=== PATIENT | female | born 1975 | race Caucasian/White ===

== ENCOUNTER → 2017-01-29 | Outpatient (CLI) | payer MEDICARE, OTHER ==
--- NOTE | 2017-01-30 09:12 | PN ---
PROGRESS NOTE Date of Service: DATE OF SERVICE: 01/29/2017. INDICATION: A 41-year-old lady brought into the sleep center for treatment of obstructive sleep apnea-hypopnea syndrome. Previously I saw the patient about 1 year ago. She continued to use her CPAP equipment successfully, but sometimes has a problem with full-face mask, may take mask off. [place] sleepiness scale today is only 2. I checked the CPAP unit, it showed usage at 29/39 for more than 4 hours, with average usage of 8.8 hours. This indicated great compliance. No snoring with the CPAP. MEDICATIONS: Venlafaxine, levothyroxine, Cogentin, omeprazole, Haldol, ProAir, Advair, Requip, vitamin D supplement. PHYSICAL EXAM: Patient in no distress. BP 116/72, HR 98, RR 16, height 5 feet 7 inches, weight 219 pounds, BMI 35.3, temperature 97.3, oxygen saturation on room air 97%. OROPHARYNX: Low position of soft palate. ABDOMEN: Obese. Neck Supple, no JVD. Thyroid is not palpable. LUNGS Clear to percussion and to auscultation. Good air exchange. No wheezing or rhonchi. HEART S1, S2 regular. No murmurs, gallops, or rubs. EXTREMITIES No clubbing or cyanosis. 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 Cranial nerves 2 to 7 intact. There is no fasciculation or atrophy. noted. No focal deficits observed. IMPRESSION: 1. Obstructive sleep apnea-hypopnea syndrome. The patient demonstrated practically 100% compliance with treatment, benefiting from treatment. Sometimes has discomfort with full-face mask. 2. Obesity. The patient significantly decreased her weight from 258 pounds during last visit to 219 pounds this visit. 3. History of bowel incontinence. 4. History of urinary incontinence. 5. History of psychosis. 6. History of goiter. 7. History of concussion. PLAN: 1. Continue treatment with CPAP every night for the whole night. 2. We will try different types of full-face mask. 3. Continue losing weight. 4. Sleep hygiene with adequate time in bed for at least 8 hours. 5. Follow up in 1 year or earlier if the patient has any problems. Thank you very much for allowing me to participate in the management of your patient. Sincerely, Abraham Dunaway MD, PhD, FAASM Diplomat of [employer] [employer] [employer] Operator of [facility] [place] MMSAGE / NIA: [id number] /
== END | disposition home or self-care (01) ==
LOC: SLEEP 13:40
PROVIDERS: ATTEND Internal Medicine
DX: G47.33 Obstructive sleep apnea (adult) (pediatric) (principal); E66.9 Obesity, unspecified; Z87.448 Personal history of other diseases of urinary system; Z86.59 Personal history of other mental and behavioral disorders; Z86.39 Personal history of other endocrine, nutritional and metabolic disease; Z87.820 Personal history of traumatic brain injury; Z87.19 Personal history of other diseases of the digestive system; Z79.899 Other long term (current) drug therapy; Z79.51 Long term (current) use of inhaled steroids

== ENCOUNTER → 2017-12-01 | Outpatient (CLI) | payer MEDICARE, OTHER ==
--- NOTE | 2017-12-01 16:15 | PN ---
PROGRESS NOTE This is a 42-year-old female patient coming to see me in followup regarding obstructive sleep apnea. The patient gotten a new CPAP unit which is an APAP with a minimum pressure of 5, maximum pressure of 12. The patient has symptomatic obstructive sleep apnea. She underwent a recent CPAP titration and she was given an APAP machine. Her sleep study showed significant sleep fragmentation frequent nocturnal arousals with an elevated arousal index, and she also demonstrated severe periodic limb movements causing sleep fragmentation. The patient has excessive number of periodic limb movements, a total of 656, with a PLMS index of 115. There were only 68 periodic limb movements that resulted in arousals, with an index of 12. At any rate, the patient is utilizing her CPAP therapy and she is coming in for followup. This is a compliancy check. I checked her CPAP machine. Her APAP machine is set at an EPR of 3. The patient has been utilizing her CPAP more than 4 hours 100% of the time. Average CPAP is around 6.3 hours per night. Leak factor is 18 L/minute. P90 pressure is at 11.6 and her AHI is down to 8. She was not able to obtain nose mask, and she is utilizing the AirFit P10 extra-small nose pillow. The patient was fitted to an AirFit N20 medium- sized mask; however, she has been told by insurance that she does not qualify for a new mask for now. She is also taking Requip 2 mg at bedtime and she is quite comfortable at this point. She is known to have multiple comorbidities, including history of schizophrenia, bipolar disorder, hypertension diabetes mellitus, irritable bowel syndrome, seizure disorder and hyperlipidemia. PHYSICAL EXAMINATION: HER CURRENT VITALS: BP is 108/76, pulse 90, respiration 16, temperature 97.1, saturation 98% on room air. Weight is 208. Height is 5 feet 6 inches. GENERAL APPEARANCE: Calm, comfortable. No acute distress. Head is atraumatic, normocephalic. NECK: Supple. There is no JVD. No goiter or neck masses. LUNGS: Clear to auscultation. Heart sounds are regular rate and rhythm. Normal S1, S2. No S3, S4. No murmurs. ABDOMEN: Soft, nontender. No organomegaly. EXTREMITIES: No edema. No cyanosis or clubbing. Neurologically alert and oriented x3. No focal neurological deficits. SKIN: Negative for any wounds or ulceration. IMPRESSION: 1. Symptomatic obstructive sleep apnea. The patient is currently on APAP, coming in for a compliancy check. 2. Sleep fragmentation secondary to obstructive sleep apnea, in part related to periodic limb movements. 3. Severe periodic limb movements with some sleep fragmentation, currently on Requip 2 mg at bedtime. 4. Obesity with a body mass index of 33.7. 5. Schizophrenia. 6. Bipolar disorder. 7. Hypertension. 8. Diabetes mellitus. 9. Irritable bowel syndrome. 10.Seizure disorder. 11.Restless legs syndrome. 12.Hyperlipidemia. PLAN: 1. Continue APAP with a minimum pressure of 5, maximum pressure of 20. 2. Provide this patient a sample of AirFit N20 medium-sized nose mask. 3. Continue Requip 2 mg at bedtime. 4. Watch for any symptoms of restless legs syndrome. The patient is benefitting from the treatment. She is waking up more refreshed and alert during the day. We will continue to follow and will consider intensifying her periodic limb movement treatment, especially if her sleep continues to be fragmented. Currently her [place] score is down to zero. MMFUNMIL / IJN: [id number] /
== END ==
LOC: SLEEP 14:30
PROVIDERS: ATTEND Internal Medicine Critical Care Medicine
DX: G47.33 Obstructive sleep apnea (adult) (pediatric) (principal); G47.61 Periodic limb movement disorder; E66.9 Obesity, unspecified; F20.9 Schizophrenia, unspecified; F31.9 Bipolar disorder, unspecified; E11.9 Type 2 diabetes mellitus without complications; K58.9 Irritable bowel syndrome, unspecified; G40.909 Epilepsy, unspecified, not intractable, without status epilepticus; G25.81 Restless legs syndrome; E78.5 Hyperlipidemia, unspecified; I10 Essential (primary) hypertension; Z68.33 Body mass index [BMI] 33.0-33.9, adult; Z99.89 Dependence on other enabling machines and devices

== ENCOUNTER → 2018-05-12 | Outpatient (CLI) | payer MEDICARE ==
[2018-05-13 03:00] LABS: T4, Free (Free Thyroxine) 1.2 ng/dL (0.80-1.80)
== END | disposition home or self-care (01) ==
LOC: LABWHC1 16:53
PROVIDERS: ATTEND Internal Medicine Critical Care Medicine
DX: E03.9 Hypothyroidism, unspecified (principal)
CPT/HCPCS: 36415; 84439; 84443

== ENCOUNTER → 2018-12-21 | Outpatient (CLI) | payer MEDICARE, OTHER ==
--- NOTE | 2018-12-21 17:29 | PN ---
PROGRESS NOTE This is a 43-year-old female patient with known history of obstructive sleep apnea, coming in for a compliancy check. The patient is on APAP mode, minimum pressure of 5, maximum pressure of 15. She is still doing very well. She is very compliant. Based on the compliance data, the patient has been averaging around 5.6 hours of APAP use per night. Her APAP use for more than 4 hours is 100%. Average APAP pressure is around 15.4 cm of water with a leak of 12 L/minute. Her AHI is down to 8. She is using extra- small AirFit P10 nose pillows. She has no specific complaints. She is refreshed during the day. No cough or sputum production. No nasal infections or sinus infections. Her current [place] score is down to 0. She has gained around 10 pounds over the past one year. She was started on Requip 2 mg at bedtime for symptoms of restless legs syndrome. She had excessive periodic limb movements on her previous polysomnogram. Other comorbidities include schizophrenia, bipolar disorder, hypertension, diabetes mellitus, irritable bowel disease, seizure disorder and hyperlipidemia. MEDICATION LIST: The patient is on: 1. Carafate 1 gram in the morning and at bedtime. 2. Venlafaxine 150 mg ER one tablet twice a day. 3. Levothyroxine 75 mcg p.o. daily. 4. Lyrica 50 mg twice a day. 5. Protonix 40 mg p.o. daily. 6. Requip 2 mg at bedtime. 7. Haldol . 8. Haldol 150 mg q.2 weeks. 9. Vitamin D 5000 units daily. 10.Amitiza 24 mcg p.o. twice a day. 11.Zantac 150 mg p.o. daily. 12.Advair 500/50 one puff twice a day. 13.Xopenex HFA on a p.r.n. basis. 14.Colace on a p.r.n. basis. REVIEW OF SYSTEMS: Fourteen-point review of system was done. Positive findings are all mentioned above in the history of present illness. No significant hypersomnia or sleepiness. No snoring while on the APAP therapy. No palpitations or chest pain. No heartburn. No shortness of breath. No cough or sputum production. No altered mentation. No headaches. No dysuria, frequency, urgency. No hematuria. No seizure activity. No wounds or skin ulceration. PHYSICAL EXAMINATION: VITAL SIGNS: BP is 117/73, pulse 88, respirations 16, temperature 97.5, saturation 95% on room air. Weight is 218. Height is 5 feet 6 inches. [place] Scale score is down to 0. BMI 35.1. GENERAL APPEARANCE: Calm, comfortable. HEAD: Atraumatic, normocephalic. NECK: Supple. There is no JVD. No goiter or neck masses. LUNGS: Clear to auscultation. HEART: Heart sounds are regular rate and rhythm. Normal S1, S2. No S3, S4. No murmurs. ABDOMEN: Soft, nontender. No organomegaly. EXTREMITIES: No edema. No cyanosis or clubbing. NEUROLOGIC: She is alert and oriented x3. There is no focal neurological deficit. PSYCHIATRIC: Negative for anxiety or depression. SKIN: Negative for any wounds or ulceration. IMPRESSION: 1. Symptomatic obstructive sleep apnea, currently on APAP, minimum of 5, maximum of 15. 2. Hypersomnia, improved. [place] score is down to 0. 3. Sleep fragmentation, improved while on APAP therapy. 4. Periodic limb movements. Currently on Requip. 5. Obesity with interval 10-pound weight gain. Current weight is up to 218 with a body mass index of 35.1. 6. Schizophrenia. 7. Bipolar disorder. 8. Hypertension. 9. Diabetes mellitus. 10.Irritable bowel syndrome. 11.Seizure disorder. 12.Hyperlipidemia. PLAN: 1. Keep the same medication. 2. Offer this patient the AirFit N30i small-size nose mask. 3. Compliance data was checked. The patient is compliant. Nevertheless, the AHI is still above 5. I increased her APAP mode to a minimum 5 and set the maximum pressure at 18. 4. Encourage weight loss. 5. See me back in a year's time in followup, earlier if needed. MMODL / IJN: [id number] /
== END | disposition home or self-care (01) ==
LOC: SLEEP 14:56
PROVIDERS: ATTEND Internal Medicine Critical Care Medicine
DX: G47.33 Obstructive sleep apnea (adult) (pediatric) (principal); G47.61 Periodic limb movement disorder; E66.9 Obesity, unspecified; F20.9 Schizophrenia, unspecified; F31.9 Bipolar disorder, unspecified; I10 Essential (primary) hypertension; E11.9 Type 2 diabetes mellitus without complications; K58.9 Irritable bowel syndrome, unspecified; G40.909 Epilepsy, unspecified, not intractable, without status epilepticus; E78.5 Hyperlipidemia, unspecified; Z68.35 Body mass index [BMI] 35.0-35.9, adult; Z99.89 Dependence on other enabling machines and devices; Z79.899 Other long term (current) drug therapy

== ENCOUNTER → 2021-03-29 | Outpatient (CLI) | payer MEDICARE, OTHER ==
[2021-03-30 02:10] LABS: Immunoglobulin E 2.85 IU/mL (0.00-114.00)
== END | disposition home or self-care (01) ==
LOC: LABWHC1 15:18
PROVIDERS: ATTEND Internal Medicine Critical Care Medicine
DX: J45.901 Unspecified asthma with (acute) exacerbation (principal)
CPT/HCPCS: 36415; 82785; 85008; 86003

== ENCOUNTER → 2021-11-04 | Outpatient (CLI) | payer MEDICARE, OTHER ==
--- NOTE | 2021-11-05 05:30 | MR ---
EXAMINATION TYPE: MR cervical spine wo con DATE OF EXAM: 11/04/2021 COMPARISON: None HISTORY: Neck pain that radiates down both arms, history of surgery Multiplanar multiecho imaging of the cervical spine with no contrast. Normal alignment. There is old anterior fusion surgery at C5-6 with metal artifact. There is adequate spinal canal and no spinal stenosis. Cervical spinal cord has normal signal pattern. No edema. Brainstem is intact. Skull base appears intact. There is no cervical paraspinal mass. I see no focal bone destruction. No compression fracture. IMPRESSION: Previous anterior fusion surgery. No complicating process seen. No evidence of instability. No spinal stenosis.
--- NOTE | 2021-11-05 05:50 | MR ---
EXAMINATION TYPE: MR brain wo/w con DATE OF EXAM: 11/04/2021 COMPARISON: 04/03/2016 HISTORY: Chronic migraines. CONTRAST: Standard multiplanar, multisequence MRI departmental protocol images were obtained without contrast a nd with 10 mL intravenous Gadavist gadolinium contrast. Diffusion images show no evidence of an acute infarct. On the T2 and FLAIR images there are scattered small white matter high signal foci that measure up to 4 mm. Most of the lesions are less than 2 mm and total number is partially 10. The brainstem is demonstrating some patchy mild increased signal on the T2 and FLAIR images. This is seen in the central libby. The cerebellum is intact. The corpus callosum is intact. Sella turcica appears normal. No evidence of orbital mass. Contrast images show no pathologic enhancement. There is normal enhancement of the venous sinuses. IMPRESSION: Compared to old exam white matter disease in the libby is a change. This could relate to demyelinating disease or microvascular ischemia. White matter changes in both cerebral hemispheres increased irina red to old exam and consistent with microvascular ischemia. There is improvement in the sinusitis compared to old exam.
== END | disposition home or self-care (01) ==
LOC: RADMRIMAIN 14:25
PROVIDERS: ATTEND Family Medicine
DX: R90.82 White matter disease, unspecified (principal); I67.82 Cerebral ischemia; Z98.1 Arthrodesis status; J32.9 Chronic sinusitis, unspecified
CPT/HCPCS: 70553; 72141; A9585

== ENCOUNTER → 2022-05-31 | Outpatient (CLI) | payer MEDICARE, OTHER ==
--- NOTE | 2022-06-01 03:48 | MR ---
EXAMINATION TYPE: MR brain wo/w con DATE OF EXAM: 05/31/2022 COMPARISON: 11/04/2021 HISTORY: Past Hx of seizures, headaches, weakness, dizziness, hx of bone cancer CONTRAST: Standard multiplanar, multisequence MRI departmental protocol images were obtained without contrast a nd with 10 mL intravenous Gadavist gadolinium contrast. Multiplanar multi echo imaging of the brain performed without and with contrast. The diffusion images show no evidence of an acute infarct. The ventricles have normal size. There is no mass effect or midline shift. No sign of intracranial hemorrhage. Corpus callosum is intact. On th e T2 and FLAIR images there are scattered small white matter high signal foci at the peterson-white matte r junction of both renal hemispheres. These measure up to 5 mm in total number is approximately 10. T here is some subtle increased signal in the left and right libby. No evidence of intracranial mass. Th e globes are symmetric. There is some mucosal thickening in the left side sphenoid sinus. Sella turci ca is normal. No evidence of retro-orbital mass. There is 1 cm mucous retention cyst in the right mahnaz e ethmoid sinus. The contrast images show no pathologic enhancement. There is normal enhancement of the venous sinuses . IMPRESSION: Scattered white matter small nonenhancing foci could relate to microvascular ischemia or demyelinatin g disease. No evidence of metastatic disease. No evidence of cortical infarct. No significant change compared to old exam.
== END | disposition home or self-care (01) ==
LOC: RADMRIMAIN 13:07
PROVIDERS: ATTEND Psychiatry & Neurology Neurology
DX: R90.82 White matter disease, unspecified (principal); R93.89 Abnormal findings on diagnostic imaging of other specified body structures
CPT/HCPCS: 70553; A9585

== ENCOUNTER 2022-10-29 16:42 | Emergency (ER) | payer MEDICARE, OTHER ==
[2022-10-29] MEDS ORDERED: KETOROLAC 15 MG/ML 1 ML VIAL IM STA (17:53)
--- NOTE | 2022-10-29 18:39 | XR ---
EXAMINATION TYPE: XR scapula RT, XR shoulder complete RT DATE OF EXAM: 10/29/2022 6:17 PM INDICATION: Patient age:Female; 47 years old; Reason for study: pain; COMPARISON: None TECHNIQUE: The right shoulder was examined in AP, internally rotated and scapular Y projections. . Right scapula was examined in frontal and lateral projections. FINDINGS: No evidence of acute osseous pathology, joint dislocation, or soft tissue swelling. The remaining por tions of the visualized chest are unremarkable. Cervical fusion hardware demonstrated. IMPRESSION: No acute osseous pathology.
[2022-10-29] MEDS ORDERED: ACET/COD 300 MG/30 MG STARTER PACK 6 TAB BTL PO STA (18:46)
--- NOTE | 2022-10-29 18:49 | ED ---
Upper Extremity HPI - General Chief Complaint: Extremity Injury, Upper Stated Complaint: right shoulder pain Time Seen by Provider: 10/29/22 17:48 Source: patient Mode of arrival: wheelchair Limitations: no limitations - History of Present Illness Initial Comments: Patient is a 47-year-old female who presents to the emergency department for right shoulder pain. It started 2 days ago. Patient denies injury but does admit to daily overhead exercise movements which she has been performing to lose weight. Patient states at first the pain was very mild however has been worsening. Pain is now significant in the back of her right shoulder near her scapula. Patient was at her neurologist office today who told her it may be a rotator cuff injury. - Related Data Home Medications Medication Instructions Recorded Confirmed ALPRAZolam 1 tab PO TID 01/12/15 01/12/15 Pregabalin [Lyrica] 75 mg PO TID 01/12/15 01/12/15 Venlafaxine HCl [Venlafaxine HCl 2 tab PO DAILY 01/12/15 01/12/15 ER] fentaNYL [Fentanyl] 25 mcg TRANSDERM Q3D 01/12/15 01/12/15 levETIRAcetam 2 tab PO Q8HR 01/12/15 01/12/15 lisinopriL [Lisinopril] 2.5 mg PO DAILY 01/12/15 01/12/15 metFORMIN HCL 1,000 mg PO BID 01/12/15 01/12/15 oxyCODONE HCL 10 mg PO QID 01/12/15 01/12/15 rOPINIRole HCL [Requip] 1 mg PO HS 01/12/15 01/12/15 Previous Rx's Medication Instructions Recorded Ibuprofen [Motrin] 600 mg PO Q8HR PRN #30 tab 07/02/22 Ibuprofen [Motrin] 800 mg PO Q8HR PRN #30 tab 10/29/22 Allergies Allergy/AdvReac Type Severity Reaction Status Date / Time cyclobenzaprine HCl Allergy Unknown Verified 07/02/22 15:01 [From Flexeril] guaifenesin [From Robitussin] Allergy Unknown Verified 07/02/22 15:01 Penicillins Allergy Unknown Verified 07/02/22 15:01 Sulfa (Sulfonamide Allergy Unknown Verified 07/02/22 15:01 Antibiotics) Review of Systems ROS Statement: Those systems with pertinent positive or pertinent negative responses have been documented in the HPI. ROS Other: All systems not noted in ROS Statement are negative. 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 Absent: respiratory distress, wheezes, rales, rhonchi, stridor Cardiovascular Exam: Present: regular rate, normal rhythm, normal heart sounds. Absent: systolic murmur, diastolic murmur, rubs, gallop, clicks Extremities exam: Present: other (tenderness above right scapula without obvious deformity overlying erythema, warmth, ecchymosis. Shoulder range of motion limited due to pain. Neurovascularly intact) Psychiatric exam: Present: normal affect, normal mood Skin exam: Present: warm, dry, intact, normal color. Absent: rash Course Vital Signs 10/29/22 10/29/22 16:43 18:52 Temperature 98.2 F 97.6 F Pulse Rate 105 H 76 Respiratory 20 16 Rate Blood Pressure 107/76 110/76 O2 Sat by Pulse 99 97 Oximetry Medical Decision Making - Medical Decision Making Was pt. sent in by a medical professional or institution (, PA, INNERSOLE MAKER, urgent care, hospital, or [facility]...) When possible be specific @ -No Did you speak to anyone other than the patient for history (EMS, parent, family, police, friend...)? What history was obtained from this source @ -No Did you review nursing and triage notes (agree or disagree)? Why? @ -I reviewed and agree with nursing and triage notes Were old charts reviewed (outside hosp., previous admission, EMS record, old EKG, old radiological studies, urgent care reports/EKG's, [facility] records)? Report findings @ -No old charts were reviewed Differential Diagnosis (chest pain, altered mental status, abdominal pain women, abdominal pain men, vaginal bleeding, weakness, fever, dyspnea, syncope, headache, dizziness, GI bleed, back pain, seizure, CVA, palpatations, mental health)? @ -DVT, fracture, strain, rotator cuff injury, cellulitis. This list is not meant to be all-inclusive EKG interpreted by me (3pts min.). @ -As above X-rays interpreted by me (1pt min.). @ -Yes, right shoulder and right scapular x-ray negative for fracture or other acute process CT interpreted by me (1pt min.). @ -None done U/S interpreted by me (1pt. min.). @ -None done What testing was considered but not performed or refused? (CT, X-rays, U/S, labs)? Why? @ -None What meds were considered but not given or refused? Why? @ -None Did you discuss the management of the patient with other professionals (luis vieyra i.e. , PA, INNERSOLE MAKER, lab, RT, psych nurse, social work instructor, supervisor wet room, teacher, public service officer, rn field case manager)? Give summary @ -No Was smoking cessation discussed for >3mins.? @ -No Was critical care preformed (if so, how long)? @ -No Were there social determinants of health that impacted care today? How? (Homelessness, low income, unemployed, alcoholism, drug addiction, transportation, low edu. Level, literacy, decrease access to med. care, fpc, rehab)? @ -No Was there de-escalation of care discussed even if they declined (Discuss DNR or withdrawal of care, Hospice)? DNR status @ -No What co-morbidities impacted this encounter? (DM, HTN, Smoking, COPD, CAD, Cancer, CVA, ARF, Chemo, Hep., AIDS, mental health diagnosis, sleep apnea, morbid obesity)? @ -None Was patient admitted / discharged? Hospital course, mention meds given and route, prescriptions, significant lab abnormalities, going to OR and other pertinent info. @ -Discharged. Patient has significant pain above right scapula without other physical exam findings. With concern for rotator cuff injury patient was placed in sling and referred to curriculum specialist. Symptomatic treatment discussed in detail. Undiagnosed new problem with uncertain prognosis? @ -No Drug Therapy requiring intensive monitoring for toxicity (Heparin, Nitro, Insulin, Cardizem)? @ -No Were any procedures done? @ -No Diagnosis/symptom? @ -right scapula pain Acute, or Chronic, or Acute on Chronic? @ -acute Uncomplicated (without systemic symptoms) or Complicated (systemic symptoms)? @ -uncomplicated Side effects of treatment? @ -No Exacerbation, Progression, or Severe Exacerbation? @ -No Poses a threat to life or bodily function? How? (Chest pain, [place], [place], pneumonia, PE, COPD, DKA, ARF, appy, cholecystitis, CVA, Diverticulitis, Homicidal, Suicidal, threat to staff... and all critical care pts) @ -No Dr. Kelley is my attending Disposition Clinical Impression: Pain of right scapula Disposition: HOME SELF-CARE Condition: Good Instructions (If sedation given, give patient instructions): P.R.I.C.E. Treatment (ED) Additional Instructions: Take Tylenol or Motrin for pain. States Tylenol 3 for severe pain. Do not take Tylenol 3 and Tylenol together. Follow-up with curriculum specialist tomorrow. Return to the emergency department if you experience new, concerning, or worsening symptoms. Prescriptions: Ibuprofen [Motrin] 800 mg PO Q8HR PRN #30 tab PRN Reason: Pain Is patient prescribed a controlled substance at d/c from ED?: No Referrals: Zoila Byers III, MD [Primary Care Provider] - 1-2 days David Diamond MD [STAFF PHYSICIAN] - 1-2 days
[2022-10-29 18:54] VITALS: BP 110/76; PULSE 76; RESP 16; TEMP 97.6
== END 2022-10-29 19:00 | disposition home or self-care (01) ==
LOC: EC 16:42
DX: M25.511 Pain in right shoulder (principal); E11.9 Type 2 diabetes mellitus without complications; G40.909 Epilepsy, unspecified, not intractable, without status epilepticus; F31.9 Bipolar disorder, unspecified; F20.9 Schizophrenia, unspecified; Z79.84 Long term (current) use of oral hypoglycemic drugs; Z79.899 Other long term (current) drug therapy; Z88.0 Allergy status to penicillin; Z88.2 Allergy status to sulfonamides; Z88.8 Allergy status to other drugs, medicaments and biological substances
CPT/HCPCS: 73010; 73030; 99283; 96372; J1885

== ENCOUNTER → 2023-01-13 | Outpatient (CLI) | payer MEDICARE, OTHER ==
--- NOTE | 2023-01-14 09:38 | MM ---
Reason for Exam: Screening (asymptomatic). Last mammogram was performed 8 year(s) and 1 month(s) ago. Patient History: Menarche at age 7. Patient has no children. Left ovary removed at age 37. Right ovary removed at age 37. Postmenopausal. Other cancer. Risk Values: Myra 5 year model risk: 1.1%. NCI Lifetime model risk: 11.0%. Prior Study Comparison: 08/17/2008 Screening Mammogram, [facility]. 12/29/2014 Bilateral Screening Mammogram, [facility]. Tissue Density: There are scattered fibroglandular densities. Findings: Analyzed By CAD. There is no suspicious group of microcalcifications or new suspicious mass in either breast. Overall Assessment: Negative, BI-RAD 1 Management: Screening Mammogram of both breasts in 1 year. . Patient should continue monthly self-breast exams. A clinical breast exam by your physician is recommended on an annual basis. This exam should not preclude additional follow-up of suspicious palpable abnormalities. Note on Myra scores and lifetime risk: 1. A Myra score greater than 3% is considered moderate risk. If this is the case, consider specialist referral to assess eligibility for a risk reducing agent. 2. If overall lifetime risk for the development of breast cancer is 20% or higher, the patient may qualify for future screening with alternating mammogram and breast MRI. Electronically signed and approved by: Gideon Enriquez M.D. Radiologis
== END | disposition home or self-care (01) ==
LOC: RADMAMWWP 10-31 15:40
PROVIDERS: ATTEND Family Medicine
DX: Z12.31 Encounter for screening mammogram for malignant neoplasm of breast (principal); Z78.0 Asymptomatic menopausal state
CPT/HCPCS: 77067

== ENCOUNTER → 2024-03-30 | Outpatient (CLI) | payer MEDICARE ==
--- NOTE | 2024-04-01 12:51 | MR ---
EXAMINATION TYPE: MR brain wo con DATE OF EXAM: 03/30/2024 COMPARISON: 05/31/2022 HISTORY: Blurry vision, No peripheral vision for many yrs, Dizziness, Hearing loss bilat, Numbness ar ms/legs, Hx cancer Lt leg, Hx seizures last one last year, memory issues. History of seizures headach es weakness dizziness and bone cancer CONTRAST: Performed utilizing 0 mL intravenous Gadavist gadolinium contrast. TECHNIQUE: Multiplanar, multiecho imaging on a 3.0 Maryam magnet is performed through the brain. Stud y is performed within 24 hours of arrival to the hospital. The craniovertebral junction is normal. There may be an empty sella. Diffusion-weighted imaging is performed. No abnormal hyperintensity is present to suggest an acute i ntracranial infarct or acute ischemic change. There are a few scattered punctate areas of hyperintensity on T2 and Inversion Recovery weighted sequ ences which are non-specific but can be related to chronic microvascular ischemic changes. These appe ar present previously. Ventricles and sulci are appropriate for the patient age. Mucosal thickening within the sphenoid sinuses. Minimal mucosal thickening may be within ethmoid air cells. Some fluid is within the right mastoid air cells. Left mastoid air cells are clear. Main paran geno sinuses are clear. IMPRESSION: 1. Mild scattered chronic periventricular white matter ischemic-type changes. 2. Fluid within the right mastoid air cells. Correlate for mastoiditis. [facility], Workstation: [email or web address], 04/01/2024 12:48 PM
== END | disposition home or self-care (01) ==
LOC: RADMRIMAIN 19:15
PROVIDERS: ATTEND Optometrist
DX: H46.03 Optic papillitis, bilateral (principal); H70.91 Unspecified mastoiditis, right ear; J34.1 Cyst and mucocele of nose and nasal sinus
CPT/HCPCS: 70551